=== PATIENT | female | born 1995 | race Caucasian/White ===

== ENCOUNTER 2024-09-24 09:22 | Emergency (ER) | payer OTHER ==
[2024-09-24 09:37] VITALS: BP 121/90; PULSE 83; RESP 19; TEMP 98.6; BMI 24.7
[2024-09-24] MEDS: ONDANSETRON *ODT* 4 MG TABLET SL ONE (10:00)
[2024-09-24 10:08] LABS: EPI CELLS 19 /uL (0-25.1); HCG,QUALITATIVE URINE Negative; HYALINE CASTS 10 /uL (0-3.1); URINE APPEARANCE CLOUDY; URINE BACTERIA 5047 /uL (0-1359); URINE BILIRUBIN NEGATIVE (NEGATIVE); URINE COLOR DK YELLOW; URINE GLUCOSE (UA) NEGATIVE (NEGATIVE); URINE KETONE 1+ (NEGATIVE); URINE LEUK ESTERASE 1+ (NEGATIVE); URINE NITRITE NEGATIVE (NEGATIVE); URINE PROTEIN 1+ (NEGATIVE); URINE WBC 157 /uL (0-25.8)
[2024-09-24] MEDS ORDERED: FAMOTIDINE 20 MG/50 ML IVPB 20 MG/50 ML MG IVPB ONE (10:08)
[2024-09-24] MEDS ORDERED: ONDANSETRON 4 MG/2 ML VIAL ONE (10:08)
[2024-09-24 10:11] LABS: URINE RBC 48.4 /uL (0-23.9)
[2024-09-24] MEDS: ONDANSETRON 4 MG/2 ML VIAL IVPUSH ONE (10:14)
[2024-09-24] MEDS: SODIUM CHLORIDE 0.9% 500 ML INFUS.BAG IV ONE (10:14)
[2024-09-24] MEDS: FAMOTIDINE 20 MG/50 ML IVPB 20 MG/50 ML MG IVPB ONE (10:14)
[2024-09-24 10:33] LABS: ABSOLUTE IMMATURE GRANULOCYTES 0.03 x10^3/uL (0.0-0.031); BASOPHILS # 0.06 x10^3/uL (0.01-0.08); EOSINOPHIL % 0.1 % (0.7-5.8); EOSINOPHILS # 0.01 x10^3/uL (0.04-0.36); HEMATOCRIT 40.6 % (34.1-44.9); HEMOGLOBIN 13.7 g/dL (11.2-15.7); MCHC 33.7 g/dl (32.2-35.5); MEAN CELL VOLUME 89.6 fl (79.4-94.8); MEAN PLT VOLUME 9.6 fl (9.4-12.3); MONOCYTE # 0.65 x10^3/uL (0.24-0.86); MONOCYTE % 6.7 % (4.7-12.5); PLATELET COUNT 290 x10^3/uL (182-369); RDW 11.6 % (12.1-16.8)
[2024-09-24 10:54] LABS: POTASSIUM 3.2 mmol/L (3.5-5.1)
[2024-09-24 10:56] LABS: ALBUMIN 4.2 g/dl (3.4-5.0); BLOOD UREA NITROGEN 20.4 mg/dL (7-18); CALCIUM 10.1 mg/dL (8.5-10.1)
[2024-09-24 11:00] LABS: CREATININE 0.9 mg/dL (0.55-1.3)
[2024-09-24 11:02] LABS: BILIRUBIN,TOTAL 1.9 mg/dL (0.2-1); TOT PROT 7.6 g/dl (6.4-8.2)
[2024-09-24] MEDS ORDERED: POTASSIUM CHLORIDE TABS 20 MEQ TABLET.ER (FP) PO ONE (11:54)
[2024-09-24] MEDS: POTASSIUM CHLORIDE TABS 20 MEQ TABLET.ER (FP) PO ONE (11:56)
[2024-09-24 12:43] LABS: HCV DIAGNOSTIC IN-HOUSE W/RFLX NON-REACTIVE (NONREACTIVE); HIV INTERPRETATION NEGATIVE (NEGATIVE)
== END 2024-09-24 12:07 | disposition home or self-care (01) ==
LOC: JER 09:22
PROC: 3E033GC Introduction of Other Therapeutic Substance into Peripheral Vein, Percutaneous Approach (ICD-10-PCS; principal; 2024-09-24)
PROC: 3E033GC Introduction of Other Therapeutic Substance into Peripheral Vein, Percutaneous Approach (ICD-10-PCS; 2024-09-24)
DX: E87.6 Hypokalemia (principal); K52.9 Noninfective gastroenteritis and colitis, unspecified; R11.2 Nausea with vomiting, unspecified; R10.84 Generalized abdominal pain; R42 Dizziness and giddiness; T78.1XXA Other adverse food reactions, not elsewhere classified, initial encounter
CPT/HCPCS: 36415; 80053; 81003; 83690; 84703; 85025; 86803; 87086; 87186; 87389; 99284-25